=== PATIENT | male | born 1970 | race Caucasian/White ===

== ENCOUNTER 2021-02-21 20:47 | Emergency (ER) | payer OTHER ==
[2021-02-22] MEDS ORDERED: NAPROSYN375 MG PO (00:05)
[2021-02-22] MEDS ORDERED: NORCO 5-325 TA1 EACH PO (00:37)
== END 2021-02-22 01:06 | disposition home or self-care (01) ==
LOC: FER 20:47
DX: S60.221A Contusion of right hand, initial encounter (principal); Z88.0 Allergy status to penicillin; Z91.018 Allergy to other foods; W31.9XXA Contact with unspecified machinery, initial encounter
CPT/HCPCS: 73130